=== PATIENT | male | born 1985 | race Caucasian/White ===

== ENCOUNTER 2022-12-16 13:32 | Outpatient (REF) | payer MEDICARE, SELFPAY ==
[2022-12-16 14:34] LABS: HCT 46.9 % (40.0-50.0); HGB 16.7 g/dL (13.5-17.5); MCH 30.5 pg (27.0-33.0); MCHC 35.6 % (32.0-36.0); MCV 86 fL (80-95); MPV 9.6 fL (8.0-11.0); Platelet Count 255 10^3/uL (130-400); RBC 5.47 10^6/uL (4.36-5.78); RDW 11.3 % (11.8-14.1); RDW-SD 35.2 fL; WBC 5.86 10^3/uL (4.4-10.8)
[2022-12-16 14:42] LABS: ALT 17 U/L (16-63); AST 20 U/L (15-37); Albumin 4.5 g/dL (3.4-5.0); Alkaline Phosphatase 82 U/L (46-116); BUN 15 mg/dL (7-18); Bilirubin, Total 1.2 mg/dL (0.2-1.0); CREATININE 1.1 mg/dL (0.70-1.30); Calcium 9.4 mg/dL (8.5-10.1); Chloride 104 mmol/L (98-107); Estimated GFR 88.12 (mL/min/1.73m2); Glucose 91 mg/dL (74-106); Potassium 4.3 mmol/L (3.5-5.1); Sodium 141 mmol/L (136-145); Total Protein 7.6 g/dL (6.4-8.2)
== END 2022-12-16 13:33 | disposition home or self-care (01) ==
LOC: NCHCN 13:32
PROVIDERS: Visit Provider Nurse Practitioner Family
DX: R10.9 Unspecified abdominal pain (principal)
CPT/HCPCS: 80053; 85027

== ENCOUNTER 2022-12-31 13:50 | Outpatient (REF) | payer MEDICARE, SELFPAY ==
[2023-01-01 13:34] LABS: Helicobacter pylori Ag, Feces Positive (Negative)
== END 2022-12-31 13:51 | disposition home or self-care (01) ==
LOC: NCHCN 13:50
PROVIDERS: Visit Provider Nurse Practitioner Family
DX: R10.9 Unspecified abdominal pain (principal); R19.5 Other fecal abnormalities
CPT/HCPCS: 87329; 87338